=== PATIENT | male | born 1995 | race Caucasian/White ===

== ENCOUNTER 2017-03-03 22:09 | Emergency (ER) | payer SELFPAY ==
--- NOTE | 2017-03-04 05:25 | ER ---
ADMIT: 03/03/2017 RM/LOC: ER [facility] MR#: [id number] [facility] [id number] [place], [place] [id number] [address] RAI [address] [address] Emergency Room Report SEX: M AGE: 21 : 1995 DATE: 03/03/2017 The patient is a 21-year-old male, complaining of chest tightness, numbness, tingling after talking to his best friend about the recent SIDS. Denies prior history of hyperventilation or anxiety. Exam remarkable for nontoxic, afebrile, hyperventilating male. Normal EKG, chest x-ray. Received Xanax 0.25 mg sublingual with improvement. Follow up Dr. Simon as needed. Brendon Zhang MD/ russelll JOB #: [id number] CC: Brendon Zhang MD, Attending Physician River Simon MD, Family Physician River Simon MD
== END 2017-03-03 23:40 | disposition home or self-care (01) ==
LOC: ER 22:09
DX: F45.8 Other somatoform disorders (principal); F17.200 Nicotine dependence, unspecified, uncomplicated